=== PATIENT | female | born 1975 | race Caucasian/White ===

== ENCOUNTER 2017-03-01 07:05 | Emergency (ER) | payer OTHER ==
[~2017-03-01] VITALS: Ht 165.1 cm; Wt 77.1 kg
[2017-03-01 07:50] LABS: Basophils # (auto) 0 uL; Eosinophils # (auto) 0 uL; Lymphocytes # (auto) 1.5 uL; Mean Corpuscular Hgb Conc. 32.5 g/dL (32.0-36.0); Mean Corpuscular Volume 70.7 fL (80.0-100.0); Monocytes # (auto) 0.3 uL; Nucleated Red Blood Cells % 0.1 %
[2017-03-01 07:52] LABS: Basophils % (auto) 0.5 % (0.0-2.0); Eosinophils % (auto) 0.5 % (0.0-7.0); Hematocrit 44.1 % (36.0-46.0); Hemoglobin 14.3 g/dL (12.2-16.2); Lymphocytes % (auto) 22.2 % (10.0-50.0); Monocytes % (auto) 4.4 % (0.0-12.0); Neutrophils % (auto) 72.4 % (37.0-80.0); Platelet Count (auto) 216 10^3/uL (140-450); Red Blood Cells 6.24 10^6/uL (4.0-5.20); White Blood Cell 6.8 10^3/uL (4.4-10.8)
[2017-03-01 08:00] LABS: Albumin 3.4 g/dL (3.4-5.0); BUN/Creatinine Ratio 14.9; Calcium 8.5 mg/dL (8.5-10.1); Potassium 3.5 mmol/L (3.5-5.1)
[2017-03-01 08:03] LABS: Bilirubin, Total 0.3 mg/dL (0.2-1.0); Total Protein 7.7 g/dL (6.4-8.2)
[2017-03-01 08:32] LABS: Urine Bacteria FEW /hpf (None Seen); Urine Blood Negative /uL (Negative); Urine Mucus FEW (None Seen); Urine Specific Gravity 1.017 (1.001-1.035); Urine WBC 1 /hpf (0 - 5)
[2017-03-01 09:45] VITALS: BP 130/90
== END 2017-03-01 10:10 | disposition home or self-care (01) ==
LOC: ER 07:09
DX: R42 Dizziness and giddiness (principal); E07.89 Other specified disorders of thyroid; F12.10 Cannabis abuse, uncomplicated; Z90.710 Acquired absence of both cervix and uterus; Z90.89 Acquired absence of other organs
CPT/HCPCS: 36415; 70450; 80053; 81001; 85025; 93005

== ENCOUNTER 2024-11-14 13:10 | Inpatient (IN) | payer MEDICAID, OTHER ==
[~2024-11-14] VITALS: Ht 165.1 cm; Wt 81.3 kg
[2024-11-14 02:20] VITALS: BP 137/92; PULSE 63; RESP 17; TEMP 98.1; O2SAT 99
[2024-11-14 14:32] LABS: Mean Corpuscular Hemoglobin 23.9 pg (28.0-32.0)
[2024-11-14 14:34] VITALS: PULSE 74; RESP 18; O2SAT 95
[2024-11-14 14:36] LABS: Hematocrit 41.9 % (36.0-46.0); Hemoglobin 13.7 g/dL (12.2-16.2); Mean Corpuscular Volume 72.8 fL (80.0-100.0); Nucleated Red Blood Cells % 0.0 %
--- NOTE | 2024-11-14 14:38 | ED.PDOC ---
GI ASSESSMENT HPI Comments A 49 YEAR OLD FEMALE PRESENTS TO THE ED WITH COMPLAINT OF ABDOMINAL PAIN . PATIENT STATES HE HAS BEEN HAVING RIGHT UPPER QUADRANT ABDOMINAL PAIN RADIATING TO THE BACK FOR THE PAST 1 WEEK. PATIENT HAS BEEN HAVING ASSOCIATED NAUSEA. PATIENT DENIES FEVER, CHILLS, SHORTNESS OF BREATH, CHEST PAIN, ABDOMINAL PAIN, VOMITING, HEADACHE, OR OTHER COMPLAINTS. NO OTHER SYMPTOMS OR MODIFYING FACTORS AT THIS TIME. PATIENT IS ALERT, ORIENTED X 4, AND HAS STEADY GAIT. Chief Complaint: Abdominal Pain Time Seen by MD: 14:15 Primary Care Provider: RENETTA Reviewed Notes: Medications, Allergies Allergies: Coded Allergies: NO KNOWN ALLERGIES (Unverified , 03/01/17) Information Source: Patient Mode of Arrival: Ambulatory Timing: Days Duration: Since onset, Days Prehospital treatment: None Quality: Aching, Cramping, Colicky Vomitus: None Stool: Normal Severity: Moderate Recent: None Recent Hx of: None Pain Location: Epigastric, RUQ Modifying Factors: Food Associated sign and symptoms: Nausea, Abdominal Pain Past Medical History PAST MEDICAL HISTORY: Thyroid Surgical History: Hysterectomy, Thyroidectomy Social History Smoker: Non-Smoker Alcohol: Denies ETOH Use Drugs: Marijuana Lives In: Home Constitutional: denies: chills, diaphoresis, fatigue, fever, malaise, sweats, weakness, others EENTM: denies: blurred vision, double vision, ear bleeding, ear discharge, ear drainage, ear pain, ear ringing, eye pain, eye redness, hearing loss, mouth pain, mouth swelling, nasal discharge, nose bleeding, nose congestion, nose pain, photophobia, tearing, throat pain, throat swelling, voice changes, others Respiratory: denies: cough, hemoptysis, orthopnea, SOB at rest, shortness of breath, SOB with excertion, stridor, wheezing, others Cardiovascular: denies: chest pain, dizzy spells, diaphoresis, Dyspnea on exertion, edema, irregular heart beat, left arm pain, lightheadedness, palpitations, PND, syncope, others Gastrointestinal: reports: abdominal pain, nausea; denies: abdomen distended, blood streaked bowels, constipated, diarrhea, dysphagia, difficulty swallowing, hematemesis, melena, poor appetite, poor fluid intake, rectal bleeding, rectal pain, vomiting, others Genitourinary: denies: abnormal vagina bleeding, burning, dyspareunia, dysuria, flank pain, frequency, hematuria, incontinence, pain, , vagina discharge, urgency, others Neurological: denies: dizziness, fainting, headache, left sided numbness, left sided weakness, numbness, paresthesia, pre-existing deficit, right sided numbness, right sided weakness, seizure, speech problems, tingling, tremors, weakness, others Musculoskeletal: reports: back pain; denies: gout, joint pain, joint swelling, muscle pain, muscle stiffness, neck pain, others Integumetry: denies: bruises, change in color, change in hair/nails, dryness, laceration, lesions, lumps, rash, wounds, others Allergic/Immunocompromised: denies: Difficulty Healing, Frequent Infections, Hives, Itching, others Hematologic/Lymphatic: denies: anemia, blood clots, easy bleeding, easy bruising, swollen glands, others Endocrine: denies: excessive hunger, excessive sweating, excessive thirst, excessive urination, flushing, intolerance to cold, intolerance to heat, unexplained weight gain, unexplained weight loss, others Psychiatric: denies: anxiety, bipolar disorder, depression, hopeless, panic disorder, schizophrenia, sleepless, suicidal, others All Other Systems: Reviewed and Negative Physical Exam General Appearance: No Apparent Distress, Normal HEENT: Normal ENT Inspection, PERRL/EOMI, Pharynx Normal, TMs Normal Neck: Full Range of Motion, Non-Tender, Normal, Normal Inspection Respiratory: Chest Non-Tender, Lungs Clear, No Accessory Muscle Use, No Respiratory Distress, Normal Breath Sounds Cardiovascular: No Edema, No JVD, No Murmur, No Gallop, Normal Peripheral Pulses, Regular Rate/Rhythm Breast Exam: Deferred Gastrointestinal: Epigastric, No Organomegaly, No Pulsatile Mass, Normal Bowel Sounds, RUQ, Soft, Tenderness (RIGHT UPPER ABD TO EPIGASTRIC, NO GUARDING AND REBOUND TENDERNESS. ) Genitalia: Deferred Pelvic: Deferred Rectal: Deferred Extremities: No calf tenderness, Normal capillary refill, Normal inspection, Normal range of motion, Non-tender, No pedal edema Musculoskeletal : Apperance: Normal Neurologic: Alert, putty tinter maker II-XII nml as Tested, No Motor Deficits, Normal Affect, Normal Mood, No Sensory Deficits Cerebellar Function: Normal Reflexes: Normal Skin: Dry, Normal Color, Warm Peripheral Pulses: 2+ carotid (R), 2+ carotid (L) Lymphatic: No Adenopathy Was a procedure done? Was a procedure done?: No GI differential Dx Differential Diagnosis: Cholangitis, Cholecystitis, Gastritis/PUD, Gastroenteri tis, UTI Other Differential Diagnosis GALLSTONES BILIARY COLIC CHOLECYSTITIS PANCREATITIS X-Ray, Labs, Meds, VS Vital Signs Date Time Temp Pulse Resp B/P (MAP) Pulse Ox O2 Delivery O2 Flow Rate FiO2 11/14/24 14:34 98.3 74 18 146/90 (108) 95 98.3 11/14/24 14:34 74 18 95 Room Air* 0 21 11/14/24 13:13 98.0 81 18 143/83 97 98.0 Lab Test 11/14/24 14:20 Range/Units White Blood Count 7.9 4.4-10.8 10^3/uL Red Blood Count 5.75 H 4.0-5.20 10^6/uL Hemoglobin 13.7 12.2-16.2 g/dL Hematocrit 41.9 36.0-46.0 % Mean Corpuscular Volume 72.8 L 80.0-100.0 fL Mean Corpuscular Hemoglobin 23.9 L 28.0-32.0 pg Mean Corpuscular Hemoglobin Concent 32.8 32.0-36.0 g/dL Red Cell Distribution Width 14.6 H 11.8-14.3 % Platelet Count 236 140-450 10^3/uL Mean Platelet Volume 8.3 6.9-10.8 fL Neutrophils (%) (Auto) 72.0 37.0-80.0 % Lymphocytes (%) (Auto) 21.2 10.0-50.0 % Monocytes (%) (Auto) 5.3 0.0-12.0 % Eosinophils (%) (Auto) 0.8 0.0-7.0 % Basophils (%) (Auto) 0.7 0.0-2.0 % Neutrophils # (Auto) 5.7 1.6-8.6 10 ^3/uL Lymphocytes # (Auto) 1.7 0.4-5.4 10 ^3/uL Monocytes # (Auto) 0.4 0-1.3 10 ^3/uL Eosinophils # (Auto) 0.1 0-0.8 10 ^3/uL Basophils # (Auto) 0.1 0-0.2 10 ^3/uL Nucleated Red Blood Cells 0.0 % Sodium Level 141 136-145 mmol/L Potassium Level 4.2 3.5-5.1 mmol/L Chloride Level 107 98-107 mmol/L Carbon Dioxide Level 24 20-31 mmol/L Anion Gap 10 5-15 Blood Urea Nitrogen 12 9-23 mg/dL Creatinine 0.63 0.550-1.02 mg/dL Glomerular Filtration Rate Calc 107 >90 mL/min BUN/Creatinine Ratio 19.0 10.0-20.0 Serum Glucose 91 74-106 mg/dL Calcium Level 8.8 8.7-10.4 mg/dL Total Bilirubin 0.5 0.2-1.0 mg/dL Aspartate Amino Transferase (AST) 59 H 13-40 U/L Alanine Aminotransferase (ALT) 84 H 7-40 U/L Alkaline Phosphatase 120 H 46-116 U/L Total Protein 7.3 5.7-8.2 g/dL Albumin 4.1 3.2-4.8 g/dL Lipase 68 H 12-53 U/L [place] [address] Ph: [phone] DIAGNOSTIC IMAGING Diagnostic Imaging Report : [id number] Signed PATIENT: KARELY WARD ACCT: [id number] UNIT: [id number] : 1975 LOC: ER ROOM / BED: / AGE / SEX: 49 / F ADM STATUS: REG ER SERVICE 1409 ORDERING PHYSICIAN: RADHA JARVIS PROCEDURE(s): GBUS - GALLBLADDER REASON: RIGHT UPPER ABD PAIN TO MIDDLE BACK ORDER NUMBER(s): [id number], ACCESSION NUMBER(s): [id number] EXAM: US GALLBLADDER HISTORY: RIGHT UPPER ABD PAIN TO MIDDLE BACK COMPARISON: None TECHNIQUE: Multiple longitudinal and transverse sonographic images of the abdomen were obtained. Doppler was applied as indicated. FINDINGS: [PANCREAS]: The visualized portions of the pancreas are unremarkable. [AORTA]: Normal [LIVER]: 16.2 cm. heterogeneous, increased echogenicity. There is no focal hepatic mass lesion detected. [GALLBLADDER]: Gallbladder wall measures 0.2 cm. Cholelithiasis. There is no sonographic Laboy sign. [BILIARY TREE]: Common bile duct measures 0.3 cm in diameter. no intrahepatic biliary ductal dilatation. [ASCITES]: No free fluid is demonstrated. [VESSELS]: The main portal vein is patent on color Doppler evaluation. The inferior vena cava is patent on color Doppler evaluation. [RIGHT KIDNEY]: 11.1 cm. normal cortical echogenicity and normal contour. No hydronephrosis. IMPRESSION: 1. Cholelithiasis. 2. No sonographic evidence of acute cholecystitis. 3. Heterogeneous, increased echogenicity of the liver, which may represent hepatic steatosis. ATED BY: SHERYL HERNANDEZ MD DICTATED DATE/TIME: 11/14/241516 SIGNED BY: SHERYL HERNANDEZ MD SIGNED DATE/TIME: 11/14/241516 CC: X-Ray, Labs, Meds, VS Comment EXTERNAL MEDICAL RECORDS REVIEWED: [NONE] INDEPENDENT HISTORIANS: [NONE] SOCIAL DETERMINANTS OF HEALTH: [NONE] LABS ORDERED: LIPASE CBC CMP REVIEWED AND INTERPRETED RESULTS: NONE IMAGING ORDERED: GALLBLADDER ULTRASOUND, TREATMENTS ORDERED: TORADOL 30MG IVP AND .9 NS 1L PROCEDURES PERFORMED: NONE CRITICAL CARE TIME: NONE I HAVE DISCUSSED THE PATIENT WITH THE ATTENDING PHYSICIAN, DR. ESPINOSA, HE AGREES WITH THE PATIENT'S PLAN OF CARE AND DISPOSITION SHARED DECISION MAKING: DISCUSSED WITH PATIENT THAT THEIR WORKUP WAS ABNORMAL WITH NOTED LIPASE OF 68, NOTED ELEVATED LIVER ENZYMES AST 59, ALT 84 AND ALT 120. PATIENT IS DIAGNOSED WITH ACUTE PANCREATITIS ELEVATED LIVER ENZYMES AND GALLSTONES THE PATIENT IS BEING ADMITTED TO THE HOSPITAL FOR FURTHER EVALUATION AND TREATMENT. Time of 1ST Reevaluation: 15:00 Reevaluation 1ST: Unchanged Patient Education/Counseling: Diagnosis, Treatment Family Education/Counseling: Diagnosis, Treatment, No Family Present SEPSIS Sepsis Screen Date sepsis recognized/suspect: Nov 14, 2024 Time Sepsis recognized/suspect: 1313 Recent Procedure: No On Antibiotic Therapy: No Respiratory Rate >20: No Heart Rate >90: No Temp<36 C (96.8 F) or >38.3 C: No SBP <90 or MAP <65 mmHG: No New Acute Mental Status Change: No Is the patient on CPAP, BIPAP,: No Physician Orders Gallbladder (11/14/24 14:09) Heplock Iv (11/14/24 ) Vital Signs Date Time Temp Pulse Resp B/P (MAP) Pulse Ox O2 Delivery O2 Flow Rate FiO2 11/14/24 14:34 98.3 74 18 146/90 (108) 95 98.3 11/14/24 14:34 74 18 95 Room Air* 0 21 11/14/24 13:13 98.0 81 18 143/83 97 98.0 Laboratory Tests Test 11/14/24 14:20 White Blood Count 7.9 10^3/uL (4.4-10.8) Departure 1 Departure Time of Disposition: 15:00 Impression: Primary Impression: Acute pancreatitis Qualified Codes: K85.90 - Acute pancreatitis without necrosis or infection, unspecified Additional Impressions: Cholelithiasis Qualified Codes: K80.20 - Calculus of gallbladder without cholecystitis without obstruction Elevated liver enzymes Disposition: ADMITTED INPATIENT Condition: Serious Critical Care Note Critical Care Time?: No Stability Stability form required: Yes Unstable for transfer: Requires medication, ED Physician Assesment, Possible rapid decline Heart Score Heart Score: Heart Score Response (Comments) Value History N/A 0 EKG N/A 0 Age N/A 0 Risk Factors N/A 0 Troponin N/A 0 Total 0 I personally scribed for RADHA JARVIS ([email or web address]) on 11/14/24 at 14:38. Electronically submitted by Tyler Hunter ([email or web address]). I personally scribed for RADHA JARVIS PA ([email or web address]) on 11/14/24 at 15:21. Electronically submitted by Tyler Hunter ([email or web address]). I personally scribed for RADHA JARVIS PA ([email or web address]) on 11/14/24 at 15:27. Electronically submitted by Tyler Hunter ([email or web address]). I personally scribed for RADHA JARVIS PA ([email or web address]) on 11/14/24 at 17:37. Electronically submitted by Tyler Hunter ([email or web address]). RADHA JARVIS Nov 14, 2024 14:38
[2024-11-14 14:50] LABS: Albumin 4.1 g/dL (3.2-4.8); Anion Gap 10 (5-15); BUN/Creatinine Ratio 19.0 (10.0-20.0); Blood Urea Nitrogen 12 mg/dL (9-23); Calcium 8.8 mg/dL (8.7-10.4); Carbon Dioxide 24 mmol/L (20-31); Glucose 91 mg/dL (74-106); Potassium 4.2 mmol/L (3.5-5.1); Sodium 141 mmol/L (136-145); Total Protein 7.3 g/dL (5.7-8.2)
[2024-11-14 14:51] LABS: Alanine Aminotransferase 84 U/L (7-40); Alkaline Phosphatase 120 U/L (46-116); Bilirubin, Total 0.5 mg/dL (0.2-1.0); Chloride 107 mmol/L (98-107); Lipase 68 U/L (12-53)
--- NOTE | 2024-11-14 15:19 | DVH ---
EXAM: US GALLBLADDER HISTORY: RIGHT UPPER ABD PAIN TO MIDDLE BACK COMPARISON: None TECHNIQUE: Multiple longitudinal and transverse sonographic images of the abdomen were obtained. Dopp ler was applied as indicated. FINDINGS: [PANCREAS]: The visualized portions of the pancreas are unremarkable. [AORTA]: Normal [LIVER]: 16.2 cm. heterogeneous, increased echogenicity. There is no focal hepatic mass lesion detect ed. [GALLBLADDER]: Gallbladder wall measures 0.2 cm. Cholelithiasis. There is no sonographic Laboy sign. [BILIARY TREE]: Common bile duct measures 0.3 cm in diameter. no intrahepatic biliary ductal dilatati on. [ASCITES]: No free fluid is demonstrated. [VESSELS]: The main portal vein is patent on color Doppler evaluation. The inferior vena cava is roman nt on color Doppler evaluation. [RIGHT KIDNEY]: 11.1 cm. normal cortical echogenicity and normal contour. No hydronephrosis. IMPRESSION: 1. Cholelithiasis. 2. No sonographic evidence of acute cholecystitis. 3. Heterogeneous, increased echogenicity of the liver, which may represent hepatic steatosis.
[2024-11-14] MEDS: KETOROLAC TROMETH 30 MG/ML 1ML VIAL IV ONE (18:50)
[2024-11-14] MEDS: SODIUM CHLORIDE 0.9% 1,000 ML IV ONE (19:00)
--- NOTE | 2024-11-14 21:52 | DVHHPRES ---
History of Present Illness Resident Creating Document: MELINDA TAVAREZ RESIDENT History of Present Illness Patient is a 49-year-old female with past medical history of right-sided breast cancer s/p lumpectomy on tamoxifen, dyslipidemia, questionable SVT, who comes in due to abdominal pain. According to the patient, she started experiencing right upper quadrant pain starting on 11/09/2024, which was initially constant, aching pain with radiation to the back, worsened with eating, without any relieving factors. Pain eventually became intermittent in nature, yesterday on 11/13/2024 patient notes she started experiencing abdominal pain again which she localized to the right upper quadrant after she had eaten oatmeal, pain is also associated with nausea and soft stools, per patient she had 1 bowel movement in the last 24 hours which was soft. Patient notes recently she has been on keto diet which involves her consuming high fatty diet. At the time of my assessment, patient denies abdominal pain after being medicated with Toradol. Past Medical History right-sided breast cancer s/p lumpectomy on tamoxifen, dyslipidemia, questionable SVT Past Surgical History Right-sided lumpectomy, hysterectomy, partial thyroidectomy Past Social History Smoking: Denies Alcohol: Denies Drugs: Uses marijuana rarely for appetite stimulation. Review of Systems Constitutional: Yes: Sweats; No: Fever, Chills, Weakness, Malaise, Other Eyes: No: Pain, Vision change, Conjunctivae inflammation, Eyelid inflammation, Other, Redness ENT: No: Ear pain, Ear discharge, Nose pain, Nose discharge, Nose congestion, Mouth pain, Mouth swelling, Throat pain, Throat swelling, Other Respiratory: No: Cough, Dry, Shortness of breath, SOB with excertion, Wheezing, Hemoptysis, Pleuritic Pain, Sputum, Wheezing, Other Cardiovascular: No: Chest Pain, Palpitations, Orthopnea, Paroxysmal Noc. Dyspnea, Edema, Lt Headedness, Other Gastrointestinal: Nausea, Abdominal Pain, Diarrhea; No: Vomiting, Constipation, Melena, Hematochezia, Other Genitourinary: No Dysuria, No Frequency, No Incontinence, No Hematuria, No Retention, No Other Musculoskeletal: No: other, neck pain, shoulder pain, arm pain, back pain, hand pain, leg pain, foot pain Skin: No: Rash, Lesions, Jaundice, Bruising, Other Neurological: No: Weakness, Numbness, Incoordination, Change in speech, Confusion, Seizures, Other Allergies: Coded Allergies: NO KNOWN ALLERGIES (Unverified , 03/01/17) Exam Vital Signs Vital Signs Date Time Temp Pulse Resp B/P (MAP) Pulse Ox O2 Delivery O2 Flow Rate FiO2 11/14/24 18:44 98.8 85 18 129/85 (100) 96 98.8 11/14/24 14:34 Room Air* 0 21 General Appearance: Alert, Oriented X3, Cooperative, No acute distress HEENT: Atraumatic, PERRLA, Mucous membr. moist/pink Respiratory: Clear to auscultation, Normal air movement Cardiovascular: Regular rate, Normal S1, Normal S2 Abdominal: Normal bowel sounds, Soft, No tenderness Extremities: No edema Skin: No significant lesion Neuro: Normal gait, Normal speech Psych/Mental Status: Mental status NL, Mood NL Labs/Xrays Labs Test 11/14/24 14:20 Range/Units White Blood Count 7.9 4.4-10.8 10^3/uL Red Blood Count 5.75 H 4.0-5.20 10^6/uL Hemoglobin 13.7 12.2-16.2 g/dL Hematocrit 41.9 36.0-46.0 % Mean Corpuscular Volume 72.8 L 80.0-100.0 fL Mean Corpuscular Hemoglobin 23.9 L 28.0-32.0 pg Mean Corpuscular Hemoglobin Concent 32.8 32.0-36.0 g/dL Red Cell Distribution Width 14.6 H 11.8-14.3 % Platelet Count 236 140-450 10^3/uL Mean Platelet Volume 8.3 6.9-10.8 fL Neutrophils (%) (Auto) 72.0 37.0-80.0 % Lymphocytes (%) (Auto) 21.2 10.0-50.0 % Monocytes (%) (Auto) 5.3 0.0-12.0 % Eosinophils (%) (Auto) 0.8 0.0-7.0 % Basophils (%) (Auto) 0.7 0.0-2.0 % Neutrophils # (Auto) 5.7 1.6-8.6 10 ^3/uL Lymphocytes # (Auto) 1.7 0.4-5.4 10 ^3/uL Monocytes # (Auto) 0.4 0-1.3 10 ^3/uL Eosinophils # (Auto) 0.1 0-0.8 10 ^3/uL Basophils # (Auto) 0.1 0-0.2 10 ^3/uL Nucleated Red Blood Cells 0.0 % Sodium Level 141 136-145 mmol/L Potassium Level 4.2 3.5-5.1 mmol/L Chloride Level 107 98-107 mmol/L Carbon Dioxide Level 24 20-31 mmol/L Anion Gap 10 5-15 Blood Urea Nitrogen 12 9-23 mg/dL Creatinine 0.63 0.550-1.02 mg/dL Glomerular Filtration Rate Calc 107 >90 mL/min BUN/Creatinine Ratio 19.0 10.0-20.0 Serum Glucose 91 74-106 mg/dL Calcium Level 8.8 8.7-10.4 mg/dL Total Bilirubin 0.5 0.2-1.0 mg/dL Aspartate Amino Transferase (AST) 59 H 13-40 U/L Alanine Aminotransferase (ALT) 84 H 7-40 U/L Alkaline Phosphatase 120 H 46-116 U/L Total Protein 7.3 5.7-8.2 g/dL Albumin 4.1 3.2-4.8 g/dL Lipase 68 H 12-53 U/L SEPSIS Sepsis Screen Date sepsis recognized/suspect: Nov 14, 2024 Time Sepsis recognized/suspect: 1312 Recent Procedure: No On Antibiotic Therapy: No Respiratory Rate >20: No Heart Rate >90: No Temp<36 C (96.8 F) or >38.3 C: No SBP <90 or MAP <65 mmHG: No New Acute Mental Status Change: No Is the patient on CPAP, BIPAP,: No Physician Orders Gallbladder (11/14/24 14:09) Heplock Iv (11/14/24 ) Admit (11/14/24 21:49) Allergies (11/14/24 21:49) Code Status (11/14/24 21:49) Vital Signs Date Time Temp Pulse Resp B/P (MAP) Pulse Ox O2 Delivery O2 Flow Rate FiO2 11/14/24 18:44 98.8 85 18 129/85 (100) 96 98.8 11/14/24 14:34 98.3 74 18 146/90 (108) 95 98.3 11/14/24 14:34 74 18 95 Room Air* 0 21 Laboratory Tests Test 11/14/24 14:20 White Blood Count 7.9 10^3/uL (4.4-10.8) Medications Medications Dose Ordered Sig/Jignesh Route Start Time Stop Time Status Last Admin Dose Admin Ketorolac Tromethamine 30 mg ONCE ONCE IV 11/14/24 15:30 11/14/24 15:31 DC 11/14/24 18:50 30 MG Sodium Chloride 1,000 ml @ 1,000 mls/hr Q1H ONCE IV 11/14/24 15:30 11/14/24 16:29 DC 11/14/24 19:00 1,000 MLS/HR Assessment/Plan Assessment/Plan Acute pancreatitis Acute intractable abdominal pain due to above Cholelithiasis, possible biliary colic? Hepatic steatosis? Colonic diverticulosis without diverticulitis - serum lipase 68 - gallbladder ultrasound: Cholelithiasis. No sonographic evidence of acute cholecystitis. Heterogeneous, increased echogenicity of the liver, which may represent hepatic steatosis. - ordered CT abdomen pelvis - follow lipase - IV Toradol PRN, IV morphine p.r.n. for moderate and severe pain respectively - IV NS 1 L once History of right-sided breast cancer s/p lumpectomy, on tamoxifen - monitor Dyslipidemia - ordered lipid panel - monitor PUD prophylaxis: protonix 40mg DVT prophylaxis: SCDs (geetha 2) Goals of care: Full code, discussed for >16 minutes on 11/14/2024 Plan discussed with patient Plan discussed with Dr. Carlisle Plan discussed with: Patient, Other (RN) My Orders Orders - MELINDA TAVAREZ Procedure Category Date Status Time Admit ADMIT 11/14/24 Verified 21:49 Allergies ANA CRISTINA 11/14/24 Verified 21:49 Code Status CODE 11/14/24 Verified 21:49 Date of Service: Nov 14, 2024 Billing Provider: PJ CARLISLE MD Common Visit Codes: 32456-ZOLTHBL INP/OBS CARE (HIGH) Secondary Visit Codes: 71539-TYVKERFP CARE PLAN 30 MINUTES MELINDA TAVAREZ Nov 14, 2024 21:52
[2024-11-14] MEDS ORDERED: MORPHINE SULFATE INJ 2 MG/ml SYRG IV PRN (22:00)
[2024-11-14 22:48] LABS: Triglycerides 91 mg/dL (< 150)
[2024-11-14 22:50] LABS: Cholesterol 163 mg/dL (< 200); HDL Cholesterol 53 mg/dL (40-59)
--- NOTE | 2024-11-14 23:10 | DVH ---
Exam: CT CT AB PEL WO CON-NO ORAL OR IV History: pancreatitis Comparison Study: None TECHNIQUE: Multidetector CT of the abdomen and pelvis was performed from lung bases to pubic symphysi s. Imaging was performed without IV contrast. Axial, coronal, and sagittal multiplanar reformats were obtained from the axial data set by the technologist. RADIATION DOSE: CTDI vol 10.51 mGy. DLP 661.3 mGy.cm Findings: Limited evaluation of the solid organs in the absence of IV contrast. Lungs: The lung bases are clear. Liver: Unremarkable. Spleen: Unremarkable. Pancreas: Unremarkable. Gallbladder: Cholelithiasis. Adrenals: Unremarkable Kidneys: Unremarkable. Pelvic Viscera: Unremarkable. Vasculature: Unremarkable. Retroperitoneum: Unremarkable. Bowel: Colonic diverticulosis without CT evidence of diverticulitis. No bowel obstruction. The appen angelina is normal. Musculoskeletal: Unremarkable. Soft tissues: Unremarkable Impression: 1. No CT evidence of pancreatitis or acute abdominopelvic abnormality. 2. Incidental findings as detailed.
[2024-11-14 23:59] LABS: COVID19 ANTIGEN SOFIA FIA NEGATIVE (NEGATIVE)
[2024-11-15 02:18] VITALS: RESP 16
[2024-11-15 03:12] LABS: Urine Protein, UAD TRACE (Negative)
[2024-11-15] MEDS ORDERED: TAMO20TA9 PO (03:18)
[2024-11-15] MEDS ORDERED: ATOR10TA52 PO (03:18)
[2024-11-15 05:00] VITALS: BP 111/71; PULSE 56; RESP 16; TEMP 98; O2SAT 99
[2024-11-15 05:28] LABS: Hematocrit 37.6 % (36.0-46.0); Hemoglobin 12.7 g/dL (12.2-16.2); Mean Corpuscular Hemoglobin 24.6 pg (28.0-32.0); Mean Corpuscular Volume 72.7 fL (80.0-100.0); Nucleated Red Blood Cells % 0.0 %
[2024-11-15 05:44] LABS: Albumin 3.3 g/dL (3.2-4.8); Alkaline Phosphatase 95 U/L (46-116); Anion Gap 7 (5-15); BUN/Creatinine Ratio 23.9 (10.0-20.0); Blood Urea Nitrogen 11 mg/dL (9-23); Carbon Dioxide 24 mmol/L (20-31); Glucose 104 mg/dL (74-106); Potassium 4.0 mmol/L (3.5-5.1); Sodium 143 mmol/L (136-145); Total Protein 6.0 g/dL (5.7-8.2)
[2024-11-15 05:45] LABS: Bilirubin, Total 0.5 mg/dL (0.2-1.0)
[2024-11-15 05:54] LABS: Chloride 112 mmol/L (98-107)
[2024-11-15 05:55] LABS: Alanine Aminotransferase 58 U/L (7-40); Calcium 8.2 mg/dL (8.7-10.4); Lipase 70 U/L (12-53)
[2024-11-15 09:00] VITALS: BP 132/79; PULSE 56; RESP 20; TEMP 97.9; O2SAT 97
[2024-11-15] MEDS: PANTOPRAZOLE 40 MG/10 ML VIAL INJ IV SCH (09:14)
--- NOTE | 2024-11-15 09:14 | DVHINCON2 ---
Date of service: Nov 15, 2024 Family History: FH: CABG (coronary artery bypass surgery) G8 FATHER FH: heart disease G8 FATHER FH: kidney failure G8 MOTHER Allergies: Coded Allergies: NO KNOWN ALLERGIES (Unverified , 03/01/17) Home Meds Reported Medications Atorvastatin Calcium (ATORVASTATIN CALCIUM) 10 Mg Tab, 1 TAB PO DAILY 11/15/24 Tamoxifen Citrate (Tamoxifen Citrate) 20 Mg Tab, 20 MG PO DAILY 11/15/24 Current Medications Current Medications Medications (Trade) Dose Ordered Sig/Jignesh Route PRN Reason Start Time Stop Time Status Last Admin Pantoprazole Sodium (Protonix) 40 mg DAILY IV 11/15/24 10:00 Ketorolac Tromethamine (Toradol Injection) 15 mg Q6HPRN PRN IV MODERATE PAIN (4-6 PAIN SCALE) 11/14/24 22:00 11/19/24 21:59 Morphine Sulfate 2 mg Q6HPRN PRN IV SEVERE PAIN (7-10 PAIN SCALE) 11/14/24 22:00 Ondansetron HCl (Zofran) 4 mg Q6HPRN PRN IV NAUSEA / VOMITING 11/14/24 22:30 Sodium Chloride 1,000 ml @ 75 mls/hr [id number] IV 11/15/24 06:30 Oseltamivir Phosphate (Tamiflu 75MG Capsule) 75 mg Q12HR PO 11/15/24 10:00 11/20/24 09:59 Vital Signs Vital Signs Date Time Temp Pulse Resp B/P (MAP) Pulse Ox O2 Delivery O2 Flow Rate FiO2 11/15/24 05:00 98.0 56 16 111/71 (84) 99 98.0 11/15/24 02:18 Room Air* 0 21 Labs/Diagnostic Data Labs Test 11/15/24 04:24 11/15/24 02:50 11/14/24 23:15 11/14/24 14:20 Range/Units White Blood Count 6.2 4.4-10.8 10^3/uL Red Blood Count 5.17 4.0-5.20 10^6/uL Hemoglobin 12.7 12.2-16.2 g/dL Hematocrit 37.6 # 36.0-46.0 % Mean Corpuscular Volume 72.7 L 80.0-100.0 fL Mean Corpuscular Hemoglobin 24.6 L 28.0-32.0 pg Mean Corpuscular Hemoglobin Concent 33.8 32.0-36.0 g/dL Red Cell Distribution Width 14.5 H 11.8-14.3 % Platelet Count 200 140-450 10^3/uL Mean Platelet Volume 8.7 6.9-10.8 fL Neutrophils (%) (Auto) 63.8 37.0-80.0 % Lymphocytes (%) (Auto) 25.9 10.0-50.0 % Monocytes (%) (Auto) 8.5 0.0-12.0 % Eosinophils (%) (Auto) 1.4 0.0-7.0 % Basophils (%) (Auto) 0.4 0.0-2.0 % Neutrophils # (Auto) 3.9 1.6-8.6 10 ^3/uL Lymphocytes # (Auto) 1.6 0.4-5.4 10 ^3/uL Monocytes # (Auto) 0.5 0-1.3 10 ^3/uL Eosinophils # (Auto) 0.1 0-0.8 10 ^3/uL Basophils # (Auto) 0 0-0.2 10 ^3/uL Nucleated Red Blood Cells 0.0 % Sodium Level 143 136-145 mmol/L Potassium Level 4.0 3.5-5.1 mmol/L Chloride Level 112 H 98-107 mmol/L Carbon Dioxide Level 24 20-31 mmol/L Anion Gap 7 5-15 Blood Urea Nitrogen 11 9-23 mg/dL Creatinine 0.46 L 0.550-1.02 mg/dL Glomerular Filtration Rate Calc 116 >90 mL/min BUN/Creatinine Ratio 23.9 H 10.0-20.0 Serum Glucose 104 74-106 mg/dL Calcium Level 8.2 L 8.7-10.4 mg/dL Total Bilirubin 0.5 0.2-1.0 mg/dL Aspartate Amino Transferase (AST) 36 13-40 U/L Alanine Aminotransferase (ALT) 58 H 7-40 U/L Alkaline Phosphatase 95 46-116 U/L Total Protein 6.0 5.7-8.2 g/dL Albumin 3.3 3.2-4.8 g/dL Lipase 70 H 12-53 U/L Urine Color Yellow Yellow Urine Clarity Turbid H Clear Urine pH 5.5 5.0-9.0 Urine Specific [place] 1.033 1.001-1.035 Urine Protein Trace H Negative Urine Ketones Negative Negative Urine Blood Negative Negative /uL Urine Nitrite Negative Negative Urine Bilirubin Negative Negative Urine Urobilinogen Normal Negative mg/dL Urine Leukocyte Esterase Negative Negative /uL Urine RBC 3 0 - 4 /hpf Urine Microscopic WBC 4 0-5 /HPF Urine Squamous Epithelial Cells Mod <5 /hpf Urine Bacteria Many H None Seen /hpf Urine Hyaline Casts Mod 0 - 2 /lpf Urine Mucus Few None Seen Urine Glucose Normal Normal mg/dL Influenza Type A Antigen Negative Negative Influenza Type B Antigen Positive Negative SARS-CoV-2 Antigen (Rapid) Negative NEGATIVE Triglycerides Level 91 < 150 mg/dL Cholesterol Level 163 < 200 mg/dL LDL Cholesterol 102 H < 100 mg/dL HDL Cholesterol 53 40-59 mg/dL Amylase Level 76 30-118 U/L Thyroid Stimulating Hormone (TSH) 0.62 0.55-4.78 uIU/mL Assessment 49 year old female with two day history of severe right upper abdominal pain radiating to her back, diagnosed with gallstones, no CT evidence of pancreatitis, abdomen minimally tender to palpation, Her serology is positive for influenza B but she has no symptoms, will re test, if positive would wait with operation if negative would proceed with cholecystectomy.operation, risks and complications explained in detail Plan discussed with: Patient AMANDA CHOUDHURY MD Nov 15, 2024 09:14
[2024-11-15] MEDS: SODIUM CHLORIDE 0.9% 1,000 ML IV SCH (09:15)
[2024-11-15] MEDS: OSELTAMIVIR 75 MG CAP PO SCH (09:15)
--- NOTE | 2024-11-15 09:48 | DVH ---
AP portable chest CLINICAL INDICATION: chills, influenza+ FINDINGS: Heart size is normal. No infiltrates or effusions. No bony thoracic abnormalities. IMPRESSION: 1. Normal chest x-ray.
[2024-11-15 11:27] LABS: INR 1.05 (0.9-1.15); Partial Thromboplastin Time 25.2 SEC (24.5-34.5); Prothrombin Time 11.1 sec (9.3-11.8)
[2024-11-15 13:00] VITALS: BP 144/99; PULSE 66; RESP 20; TEMP 99; O2SAT 97
[2024-11-15] MEDS: ONDANSETRON HCL 4 MG/2 ML VIAL IV PRN (13:26)
[2024-11-15] MEDS: KETOROLAC TROMETH 30 MG/ML 1ML VIAL IV PRN (13:42)
[2024-11-15 17:00] VITALS: BP 147/86; PULSE 77; RESP 21; TEMP 98.8; O2SAT 96
[2024-11-15 21:00] VITALS: BP 123/80; PULSE 58; RESP 18; TEMP 98; O2SAT 97
[2024-11-15] MEDS ORDERED: OSELTAMIVIR 75 MG CAP PO ONE (21:23)
--- NOTE | 2024-11-15 22:08 | DVHPN2 ---
Subjective The patient is seen and examined at bedside. The patient has stated that her pain is improved. Patient tolerated clear liquid diet. Surgeon had see the patient. Reviewed: Care Plan, H&P, Labs, Medications, Previous Orders Changes from previous H/P or p: No Changes Eyes: No Pain, No Vision change, No Conjunctivae inflammation, No Eyelid inflammation, No Other, No Redness ENT: No Ear pain, No Ear discharge, No Nose pain, No Nose discharge, No Nose congestion, No Mouth pain, No Mouth swelling, No Throat pain, No Throat swelling, No Other Cardiovascular: No Chest Pain, No Palpitations, No Orthopnea, No Paroxysmal Noc. Dyspnea, No Edema, No Lt Headedness, No Other Respiratory: No Cough, No Dry, No Shortness of breath, No SOB with excertion, No Wheezing, No Hemoptysis, No Pleuritic Pain, No Sputum, No Other Gastrointestinal: Nausea; No Vomiting; Abdominal Pain, Diarrhea; No Constipation, No Melena, No Hematochezia, No Other Genitourinary: No Dysuria, No Frequency, No Incontinence, No Hematuria, No Retention, No Other Musculoskeletal: No other, No neck pain, No shoulder pain, No arm pain, No back pain, No hand pain, No leg pain, No foot pain Skin: No Rash, No Lesions, No Jaundice, No Bruising, No Other Objective Vitals Vital Signs Date Time Temp Pulse Resp B/P (MAP) Pulse Ox O2 Delivery O2 Flow Rate FiO2 11/15/24 21:00 98.0 58 18 123/80 (94) 97 98.0 11/15/24 08:00 Room Air* 0 21 Intake/Output Intake and Output 11/15/24 07:00 Intake Total 0 ml Output Total 200 ml Balance -200 ml Intake Oral 0 ml Output Urine Total 200 ml General Appearance: Alert, Oriented X3, Cooperative, No acute distress HEENT: Atraumatic, PERRLA, EOMI, Mucous membr. moist/pink Neck: Supple Lungs: Clear to auscultation, Normal air movement Cardiovascular: Regular rate, Normal S1, Normal S2, No murmurs, Gallops, Rubs Abdomen: Normal bowel sounds, Soft, No tenderness Neuro: Cranial nerves 3-12 NL Psych/Mental Status: Mental status NL Medications Current Medications Medications Dose Ordered Sig/Jignesh Route Start Time Stop Time Status Last Admin Dose Admin Pantoprazole Sodium 40 mg DAILY IV 11/15/24 10:00 11/15/24 09:14 40 MG Ketorolac Tromethamine 15 mg Q6HPRN PRN IV 11/14/24 22:00 11/19/24 21:59 11/15/24 13:42 15 MG Morphine Sulfate 2 mg Q6HPRN PRN IV 11/14/24 22:00 Ondansetron HCl 4 mg Q6HPRN PRN IV 11/14/24 22:30 11/15/24 13:26 4 MG Sodium Chloride 1,000 ml @ 75 mls/hr [id number] IV 11/15/24 06:30 11/15/24 21:26 75 MLS/HR Oseltamivir Phosphate 75 mg Q12HR PO 11/15/24 10:00 11/20/24 09:59 11/15/24 21:21 75 MG Laboratory Results Laboratory Tests 11/15/24 04:24 Chemistry Test 11/15/24 04:24 Albumin 3.3 g/dL (3.2-4.8) Calcium Level 8.2 mg/dL (8.7-10.4) L Total Protein 6.0 g/dL (5.7-8.2) Coagulation Test 11/15/24 10:32 Prothrombin Time 11.1 sec (9.3-11.8) Prothrombin Time INR 1.05 (0.9-1.15) Activated Partial Thromboplast Time 25.2 SEC (24.5-34.5) Lipid panel Test 11/15/24 04:24 Lipase 70 U/L (12-53) H LFT Test 11/15/24 04:24 Alanine Aminotransferase (ALT) 58 U/L (7-40) H Alkaline Phosphatase 95 U/L (46-116) Aspartate Amino Transferase (AST) 36 U/L (13-40) Total Bilirubin 0.5 mg/dL (0.2-1.0) Urinalysis Test 11/15/24 02:50 Urine Color Yellow (Yellow) Urine Clarity Turbid (Clear) H Urine pH 5.5 (5.0-9.0) Urine Specific [place] 1.033 (1.001-1.035) Urine Protein Trace (Negative) H Urine Ketones Negative (Negative) Urine Blood Negative /uL (Negative) Urine Nitrite Negative (Negative) Urine Bilirubin Negative (Negative) Urine Urobilinogen Normal mg/dL (Negative) Urine Leukocyte Esterase Negative /uL (Negative) Urine RBC 3 /hpf (0 - 4) Urine Microscopic WBC 4 /HPF (0-5) Urine Squamous Epithelial Cells Mod /hpf (<5) Urine Bacteria Many /hpf (None Seen) H Urine Hyaline Casts Mod /lpf (0 - 2) Urine Mucus Few (None Seen) Urine Glucose Normal mg/dL (Normal) Labs and/or images reviewed: Labs reviewed by me Assessment/Plan Assessment/Plan Acute pancreatitis Biliary colic Acute intractable abdominal pain due to above Cholelithiasis Hepatic steatosis? Colonic diverticulosis without diverticulitis Influenza B positive Continuing current management. Diet advanced to full liquid diet. Rechecked influenza B, if negative patient will be keep NPO past midnight Surgery cholecystectomy schedule for a.m. if influenza B rechecked negative Continuing with IV fluid Continuing with pain medication Continuing with Tamiflu 75 mg b.i.d. This medical document was created using an electronic medical record system with [employer] direct computerized dictation system. Although this document has been carefully reviewed, there may still be some phonetic and typographical errors. These areas are purely typographical due to imperfections of the software programs, and do not reflect any compromise in the patient's medical care. Plan discussed with: Patient Date of Service: Nov 15, 2024 Billing Provider: TUAN ORTIZ MD Common Visit Codes: [id number] INP/OBS CARE(HIGH) TUAN ORTIZ MD Nov 15, 2024 22:08
[2024-11-16] VITALS (7 sets, daily range): BP systolic 101–150; BP diastolic 68–98; PULSE 51–68; RESP 15–18; TEMP 37.1; O2SAT 96–99
[2024-11-16 10:28] LABS: Mean Corpuscular Hemoglobin 24.4 pg (28.0-32.0); Nucleated Red Blood Cells % 0.1 %
[2024-11-16 10:31] LABS: Hematocrit 40.4 % (36.0-46.0); Hemoglobin 13.2 g/dL (12.2-16.2); Mean Corpuscular Volume 74.6 fL (80.0-100.0); Potassium 4.3 mmol/L (3.5-5.1); Sodium 143 mmol/L (136-145)
[2024-11-16 10:32] LABS: Anion Gap 9 (5-15); Carbon Dioxide 24 mmol/L (20-31)
[2024-11-16 10:37] LABS: Glucose 96 mg/dL (74-106)
--- NOTE | 2024-11-16 10:58 | DVHPN2 ---
Subjective The patient is seen and examined at bedside. The patient has stated that her pain is improved. Patient tolerated clear liquid diet. Surgeon had see the patient. Reviewed: Care Plan, H&P, Labs, Medications, Previous Orders Eyes: No Pain, No Vision change, No Conjunctivae inflammation, No Eyelid inflammation, No Other, No Redness ENT: No Ear pain, No Ear discharge, No Nose pain, No Nose discharge, No Nose congestion, No Mouth pain, No Mouth swelling, No Throat pain, No Throat swelling, No Other Cardiovascular: No Chest Pain, No Palpitations, No Orthopnea, No Paroxysmal Noc. Dyspnea, No Edema, No Lt Headedness, No Other Respiratory: No Cough, No Dry, No Shortness of breath, No SOB with excertion, No Wheezing, No Hemoptysis, No Pleuritic Pain, No Sputum, No Other Gastrointestinal: Nausea; No Vomiting; Abdominal Pain, Diarrhea; No Constipation, No Melena, No Hematochezia, No Other Genitourinary: No Dysuria, No Frequency, No Incontinence, No Hematuria, No Retention, No Other Musculoskeletal: No other, No neck pain, No shoulder pain, No arm pain, No back pain, No hand pain, No leg pain, No foot pain Skin: No Rash, No Lesions, No Jaundice, No Bruising, No Other Objective Vitals Vital Signs Date Time Temp Pulse Resp B/P (MAP) Pulse Ox O2 Delivery O2 Flow Rate FiO2 11/16/24 09:00 98.7 68 16 137/90 (106) 99 98.7 11/15/24 20:00 Room Air* 0 21 Intake/Output Intake and Output 11/16/24 06:59 Intake Total 2250 ml Output Total 250 ml Balance 2000 ml Intake Oral 900 ml IV Total 1350 ml Output Urine Total 250 ml # Voids 5 General Appearance: Alert, Oriented X3, Cooperative, No acute distress HEENT: Atraumatic, PERRLA, EOMI, Mucous membr. moist/pink Neck: Supple Lungs: Clear to auscultation, Normal air movement Cardiovascular: Regular rate, Normal S1, Normal S2, No murmurs, Gallops, Rubs Abdomen: Normal bowel sounds, Soft, No tenderness Neuro: Cranial nerves 3-12 NL Psych/Mental Status: Mental status NL Medications Current Medications Medications Dose Ordered Sig/Jignesh Route Start Time Stop Time Status Last Admin Dose Admin Pantoprazole Sodium 40 mg DAILY IV 9/14/25 10:00 11/15/24 09:14 40 MG Ketorolac Tromethamine 15 mg Q6HPRN PRN IV 11/14/24 22:00 11/19/24 21:59 11/16/24 01:56 15 MG Morphine Sulfate 2 mg Q6HPRN PRN IV 11/14/24 22:00 Ondansetron HCl 4 mg Q6HPRN PRN IV 11/14/24 22:30 11/15/24 13:26 4 MG Sodium Chloride 1,000 ml @ 75 mls/hr [id number] IV 11/15/24 06:30 11/15/24 21:26 75 MLS/HR Oseltamivir Phosphate 75 mg Q12HR PO 11/15/24 10:00 11/20/24 09:59 11/15/24 21:21 75 MG Laboratory Results Chemistry Test 11/16/24 09:50 Calcium Level Pending Urinalysis Test 11/15/24 02:50 Urine Color Yellow (Yellow) Urine Clarity Turbid (Clear) H Urine pH 5.5 (5.0-9.0) Urine Specific [place] 1.033 (1.001-1.035) Urine Protein Trace (Negative) H Urine Ketones Negative (Negative) Urine Blood Negative /uL (Negative) Urine Nitrite Negative (Negative) Urine Bilirubin Negative (Negative) Urine Urobilinogen Normal mg/dL (Negative) Urine Leukocyte Esterase Negative /uL (Negative) Urine RBC 3 /hpf (0 - 4) Urine Microscopic WBC 4 /HPF (0-5) Urine Squamous Epithelial Cells Mod /hpf (<5) Urine Bacteria Many /hpf (None Seen) H Urine Hyaline Casts Mod /lpf (0 - 2) Urine Mucus Few (None Seen) Urine Glucose Normal mg/dL (Normal) Microbiology Microbiology Date/Time Source Procedure Growth Status 11/15/24 02:50 Voided Urine Urine Culture - Preliminary Resulted Assessment/Plan Assessment/Plan Acute pancreatitis Biliary colic Acute intractable abdominal pain due to above Cholelithiasis Hepatic steatosis? Colonic diverticulosis without diverticulitis Influenza B positive Continuing current management. Diet advanced to full liquid diet. Rechecked influenza B, if negative patient will be keep NPO past midnight Surgery cholecystectomy schedule for a.m. if influenza B rechecked negative Continuing with IV fluid Continuing with pain medication Continuing with Tamiflu 75 mg b.i.d. This medical document was created using an electronic medical record system with [employer] direct computerized dictation system. Although this document has been carefully reviewed, there may still be some phonetic and typographical errors. These areas are purely typographical due to imperfections of the software programs, and do not reflect any compromise in the patient's medical c are. My Orders Orders - TUAN ORTIZ MD Procedure Category Date Status Time Complete Blood Count LAB 11/16/24 In Process 05:00 Complete Blood Count LAB 11/17/24 Verified 05:00 Complete Blood Count LAB 11/18/24 Verified 05:00 Complete Blood Count LAB 11/19/24 Verified 05:00 Complete Blood Count LAB 11/20/24 Verified 05:00 Basic Metabolic Panel LAB 11/16/24 In Process 05:00 Basic Metabolic Panel LAB 11/17/24 Verified 05:00 Basic Metabolic Panel LAB 11/18/24 Verified 05:00 Basic Metabolic Panel LAB 11/19/24 Verified 05:00 Basic Metabolic Panel LAB 11/20/24 Verified 05:00 TUAN ORTIZ MD Nov 16, 2024 10:58
[2024-11-16 11:10] LABS: BUN/Creatinine Ratio 9.6 (10.0-20.0); Blood Urea Nitrogen < 5 mg/dL (9-23); Calcium 8.6 mg/dL (8.7-10.4); Chloride 110 mmol/L (98-107)
[2024-11-16 11:31] LABS: Hepatitis A Total Antibody Positive (Negative)
[2024-11-16 11:32] LABS: Hepatitis B Surface Antigen Negative (Negative); Hepatitis C Antibody Negative (Negative)
[2024-11-16] MEDS ORDERED: TAMIFLU PO (12:19)
--- NOTE | 2024-11-16 12:20 | DVHDS2 ---
Discharge Summary Date of Admission Nov 14, 2024 at 21:49 Date of Discharge: Nov 16, 2024 Admitting Diagnosis Acute pancreatitis Biliary colic Acute intractable abdominal pain due to above Cholelithiasis Hepatic steatosis? Colonic diverticulosis without diverticulitis Labs/Diagnostic Data: Laboratory Results Test 11/16/24 09:50 11/16/24 09:48 11/15/24 10:32 11/15/24 04:24 White Blood Count 5.5 10^3/uL (4.4-10.8) Red Blood Count 5.41 10^6/uL (4.0-5.20) Hemoglobin 13.2 g/dL (12.2-16.2) Hematocrit 40.4 % (36.0-46.0) Mean Corpuscular Volume 74.6 fL (80.0-100.0) Mean Corpuscular Hemoglobin 24.4 pg (28.0-32.0) Mean Corpuscular Hemoglobin Concent 32.7 g/dL (32.0-36.0) Red Cell Distribution Width 14.8 % (11.8-14.3) Platelet Count 215 10^3/uL (140-450) Mean Platelet Volume 8.9 fL (6.9-10.8) Neutrophils (%) (Auto) 59.1 % (37.0-80.0) Lymphocytes (%) (Auto) 32.4 % (10.0-50.0) Monocytes (%) (Auto) 6.8 % (0.0-12.0) Eosinophils (%) (Auto) 1.0 % (0.0-7.0) Basophils (%) (Auto) 0.7 % (0.0-2.0) Neutrophils # (Auto) 3.2 10 ^3/uL (1.6-8.6) Lymphocytes # (Auto) 1.8 10 ^3/uL (0.4-5.4) Monocytes # (Auto) 0.4 10 ^3/uL (0-1.3) Eosinophils # (Auto) 0.1 10 ^3/uL (0-0.8) Basophils # (Auto) 0 10 ^3/uL (0-0.2) Nucleated Red Blood Cells 0.1 % Sodium Level 143 mmol/L (136-145) Potassium Level 4.3 mmol/L (3.5-5.1) Chloride Level 110 mmol/L (98-107) Carbon Dioxide Level 24 mmol/L (20-31) Anion Gap 9 (5-15) Blood Urea Nitrogen < 5 mg/dL (9-23) Creatinine 0.52 mg/dL (0.550-1.02) Glomerular Filtration Rate Calc 112 mL/min (>90) BUN/Creatinine Ratio 9.6 (10.0-20.0) Serum Glucose 96 mg/dL (74-106) Calcium Level 8.6 mg/dL (8.7-10.4) Influenza Type A Antigen Negative (Negative) Influenza Type B Antigen Positive (Negative) Prothrombin Time 11.1 sec (9.3-11.8) Prothrombin Time INR 1.05 (0.9-1.15) Activated Partial Thromboplast Time 25.2 SEC (24.5-34.5) Total Bilirubin 0.5 mg/dL (0.2-1.0) Aspartate Amino Transferase (AST) 36 U/L (13-40) Alanine Aminotransferase (ALT) 58 U/L (7-40) Alkaline Phosphatase 95 U/L (46-116) Total Protein 6.0 g/dL (5.7-8.2) Albumin 3.3 g/dL (3.2-4.8) Lipase 70 U/L (12-53) Test 11/15/24 02:50 11/14/24 23:15 11/14/24 14:20 Urine Color Yellow (Yellow) Urine Clarity Turbid (Clear) Urine pH 5.5 (5.0-9.0) Urine Specific [place] 1.033 (1.001-1.035) Urine Protein Trace (Negative) Urine Ketones Negative (Negative) Urine Blood Negative /uL (Negative) Urine Nitrite Negative (Negative) Urine Bilirubin Negative (Negative) Urine Urobilinogen Normal mg/dL (Negative) Urine Leukocyte Esterase Negative /uL (Negative) Urine RBC 3 /hpf (0 - 4) Urine Microscopic WBC 4 /HPF (0-5) Urine Squamous Epithelial Cells Mod /hpf (<5) Urine Bacteria Many /hpf (None Seen) Urine Hyaline Casts Mod /lpf (0 - 2) Urine Mucus Few (None Seen) Urine Glucose Normal mg/dL (Normal) SARS-CoV-2 Antigen (Rapid) Negative (NEGATIVE) Triglycerides Level 91 mg/dL (< 150) Cholesterol Level 163 mg/dL (< 200) LDL Cholesterol 102 mg/dL (< 100) HDL Cholesterol 53 mg/dL (40-59) Amylase Level 76 U/L (30-118) Thyroid Stimulating Hormone (TSH) 0.62 uIU/mL (0.55-4.78) Hepatitis A Antibody Total Positive (Negative) Hepatitis B Surface Antigen Negative (Negative) Hepatitis B Surface Antibody Negative (Negative) Hepatitis B Core Total Antibody Negative (Negative) Hepatitis C Antibody Negative (Negative) Other Laboratory Tests 11/16/24 09:50 Brief Hx & Hospital Course: This is a 49 years old female with past medical history of right-sided breast cancer status post lumpectomy on tamoxifen, dyslipidemia, SVT come in because severe abdominal pain. The patient experience right upper quadrant abdominal pain radiating to the back. Worsening with eating and without relief of over counter pain medication. The patient started having nausea and wanted to vomit so the patient come to emergency department for further evaluation. The patient noted the abdominal pain come more frequent when she started recently on keto diet which involved her come screaming high fatty diet. The patient imaging showed cholelithiasis and mild elevation of lipase. CT scan showed no abnormality. see the patient and recommend cholecystectomy. However the patient was found to have influenza B positive. The patient was put on Tamiflu but repeat influenza test still positive today so he advised her to have elective surgery as outpatient. The patient agree with it . The patient had no abdominal pain. I will discharge her home today. Advised her to follow up with primary care physician 1-2 weeks. Follow up with , surgeon per schedule for elective cholecystectomy as outpatient. Activity as tolerated. Diet per home diet. Physical exam: HEENT: Normocephalic atraumatic pupils equal react to light and accommodation. Extraocular muscles intact, conjunctiva pink, oropharynx moist, no thrush, no exudate. Lymphatic: No lymphadenopathy Cardiovascular exam: S1, S2 was heard. No murmurs, rubs, gallops Lung: Clear on auscultation bilaterally, no wheeze, rale, rhonchi. GI: Abdominal soft, nondistended, nontenderness, positive bowel sounds. Extremity: No crepitus, cyanosis, edema. Pedal pulses present bilateral. Full range of motion. Skin: Normal turgor, no rash. Psych: Alert, oriented x3. Neurology: No focal deficits, cranial nerve II to XII grossly intact. This medical document was created using an electronic medical record system with [employer] direct computerized dictation system. Although this document has been carefully reviewed, there may still be some phonetic and typographical errors. These areas are purely typographical due to imperfections of the software programs, and do not reflect any compromise in the patient's medical care. Condition at Discharge: Stable Final Diagnosis/Problems List galmirelaader stone pancreatitis Influenza B infection Acute pancreatitis Biliary colic Acute intractable abdominal pain due to above Cholelithiasis Hepatic steatosis? Colonic diverticulosis without diverticulitis Discharge Disposition: Home Discharge Instruct/Medications Diet: Regular Activity: No Restrictions, As Tolerated Follow Up/Referral: surgeon in 2 weeks for elective cholecystectomy PCP 1-2 weeks Medications: see med list Scheduled Atorvastatin Calcium (Atorvastatin Calcium), 1 TAB PO DAILY, (Reported) Oseltamivir Phosphate (Tamiflu), 75 MG PO Q12HR Tamoxifen Citrate (Tamoxifen Citrate), 20 MG PO DAILY, (Reported) Discharge Statement: "Patient was advised to return to the ER or call 911 if any headaches, dizziness, shortness of breath, chest pain, abdominal pain, bleeding, fevers, or worsening of medical condition. Patient was counseled about treatment plan, medications, possible side effects, patientverbalized understanding. All questions were answered to the best of my ability. This discharge took greater then 30 minutes in planning, reviewing documentation, counseling the patient, and discussing with other team members." ASSESSMENT ASSESSMENT Assessment galmirelaader stone pancreatitis Influenza B Date of Service: Nov 16, 2024 Billing Provider: TUAN ORTIZ MD Common Visit Codes: [id number]/[id number] DISCH DAY >30min TUAN ORTIZ MD Nov 16, 2024 12:20
--- NOTE | 2024-11-16 13:06 | DVHPN2 ---
Progress Note Date Seen: Nov 16, 2024 Medical Necessity Reason Pt with a Central, PICC or Fol: No Objective vital signs Vital Sign Date Time Temp Pulse Resp B/P (MAP) Pulse Ox O2 Delivery O2 Flow Rate FiO2 11/16/24 09:00 98.7 68 16 137/90 (106) 99 98.7 11/16/24 08:05 Room Air* 0 21 Total Intake and Output 11/15/24 11/15/24 11/16/24 15:00 23:00 07:00 Intake Total 1450 ml 800 ml Output Total 250 ml Balance 1200 ml 800 ml medications Current Medications Medications Dose Ordered Sig/Jignesh Route Start Time Stop Time Status Last Admin Dose Admin Pantoprazole Sodium 40 mg DAILY IV 11/15/24 10:00 11/16/24 11:14 40 MG Ketorolac Tromethamine 15 mg Q6HPRN PRN IV 11/14/24 22:00 11/19/24 21:59 11/16/24 12:06 15 MG Morphine Sulfate 2 mg Q6HPRN PRN IV 11/14/24 22:00 Ondansetron HCl 4 mg Q6HPRN PRN IV 11/14/24 22:30 11/15/24 13:26 4 MG Sodium Chloride 1,000 ml @ 75 mls/hr [id number] IV 11/15/24 06:30 11/15/24 21:26 75 MLS/HR Oseltamivir Phosphate 75 mg Q12HR PO 11/15/24 10:00 11/20/24 09:59 11/16/24 11:13 75 MG laboratory and microbiology Laboratory Tests 11/16/24 09:50 Test 11/16/24 09:50 Range/Units Serum Glucose 96 74-106 mg/dL Problem List/Assessment/Plan Problem List/Assessment/Plan 11/16/24 patient accepting the decision to wait for six weeks to completely clear the influenza B infection, have the patient return to my office to plan elective operation.i will sign off ,recall if needed Plan discussed with: Patient AMANDA CHOUDHURY MD Nov 16, 2024 13:06
== END 2024-11-16 17:20 | disposition home or self-care (01) | DRG 282 ==
LOC: ER 13:10 → OVERFLOW 21:49 → EAST 11-15 02:15
PROVIDERS: ADMIT Internal Medicine; ATTEND Internal Medicine
DX: K85.10 Biliary acute pancreatitis without necrosis or infection (principal); E78.5 Hyperlipidemia, unspecified; J10.1 Influenza due to other identified influenza virus with other respiratory manifestations; K57.30 Diverticulosis of large intestine without perforation or abscess without bleeding; Z20.822 Contact with and (suspected) exposure to COVID-19; E89.0 Postprocedural hypothyroidism; R74.8 Abnormal levels of other serum enzymes; K76.0 Fatty (change of) liver, not elsewhere classified; Z90.710 Acquired absence of both cervix and uterus; Z85.3 Personal history of malignant neoplasm of breast; Z79.810 Long term (current) use of selective estrogen receptor modulators (SERMs); Z82.49 Family history of ischemic heart disease and other diseases of the circulatory system; Z84.1 Family history of disorders of kidney and ureter
CPT/HCPCS: 36415; 71045; 74176; 76705; 80048; 80053; 80061; 81001; 82150; 83690; 84443; 85025; 85610; 85730; 86704; 86706; 86708; 86803; 86850; 86900; 86901; 87086; 87340; 87426; 87804; 96361; 96374; G0378; J1885; J2405; J2470